=== PATIENT | female | born 1985 | race Caucasian/White ===

== ENCOUNTER 2021-02-14 18:25 | Emergency (ER) | payer OTHER ==
[~2021-02-14] VITALS: Ht 160 cm; Wt 63.0 kg
[2021-02-14 18:28] VITALS: BP 127/69
--- NOTE | 2021-02-14 19:38 | NUR ---
DR DEY AT BEDSIDE EXAMINING PT
--- NOTE | 2021-02-14 19:43 | NUR ---
36 Y/O F PATIENT PRESENTS TO ED WITH ABDOMINAL PAIN. PT STATES THE SHE HAS 5/10 LOWER ABDOMINAL PAIN. PT STATES "FEELING NAUSEOUS" DENIES V/D; SKIN IS PINK/WARM/DRY; AAOX4 WITH EVEN AND STEADY GAIT; LUNGS CLEAR BL; HR EVEN AND REGULAR; PT DENIES ANY FEVER, CP, SOB, OR COUGH AT THIS TIME; PATIENT STATES PAIN OF 0/10 AT THIS TIME; VSS; PATIENT POSITIONED FOR COMFORT; HOB ELEVATED; BEDRAILS UP X2; BED DOWN. ER MD MADE AWARE OF PT STATUS. PMH: DENIES NKA
[2021-02-14] MEDS ORDERED: ONDA-24 SL (19:47)
[2021-02-14 20:34] VITALS: BP 127/69
== END 2021-02-14 20:28 | disposition home or self-care (01) ==
LOC: MED 18:25
DX: T62.91XA Toxic effect of unspecified noxious substance eaten as food, accidental (unintentional), initial encounter (principal); K52.9 Noninfective gastroenteritis and colitis, unspecified; Y92.89 Other specified places as the place of occurrence of the external cause; Z88.6 Allergy status to analgesic agent
CPT/HCPCS: 81002; 81025; 99283

== ENCOUNTER 2021-07-03 16:43 | Emergency (ER) | payer OTHER ==
[~2021-07-03] VITALS: Ht 157.5 cm; Wt 59.0 kg
[~2021-07-03 16:43] MED LIST: ONDA-24 SL
[2021-07-03 16:48] VITALS: BP 124/85
--- NOTE | 2021-07-03 16:48 | NUR ---
PT COMPLAINS OF CONGESTION, CHEST TIGHTNESS X FRIDAY. PT STATES SHE TOOK ALBUTEROL INHALER PRIOR TO ARRIVAL, PT STATES DID NOT HELP. LUNGS CLEAR BL. RR 20, SPO2 99%. PT STATES SHE ALSO HAS FACIAL SWELLING. PMH - ASTHMA
[2021-07-03] MEDS ORDERED: ALBUTEROL 0.083% 2.5 MG/3 ML NEBU INH ONE (17:10)
[2021-07-03] MEDS ORDERED: predniSONE 20 MG TAB PO ONE (17:10)
[2021-07-03] MEDS ORDERED: ALBUTEROL SULFATE/IPRATROPIU 3 ML SOL IH ONE ×2 (17:10→18:42)
[2021-07-03] MEDS ORDERED: DIPH25TA53 PO (17:17)
[2021-07-03] MEDS ORDERED: KETO5SOL7 BOTH EYES (17:17)
--- NOTE | 2021-07-03 17:35 | NUR ---
UNABLE TO FIND PT IN TENT, WILL TRY AGAIN LATER
--- NOTE | 2021-07-03 17:56 | NUR ---
ATTEMPTED TO FIND PT TO ADMINISTER BREATHING TX PT NOT IN TENT. NURSE MADE AWARE UNABLE TO LOCATE PT.
[2021-07-03] MEDS ORDERED: predniSONE 20 MG TAB ONE (18:19)
--- NOTE | 2021-07-03 18:56 | NUR ---
PER RT FINISHED BREATHING TREATMENT
[2021-07-03 19:01] VITALS: BP 124/85
--- NOTE | 2021-07-03 19:02 | NUR ---
Patient discharged with v/s stable. Written and verbal after care instructions about allergic rhinitis given and explained. Patient alert, oriented and verbalized understanding of instructions. Ambulatory with steady gait. All questions addressed prior to discharge. ID band removed. Patient advised to follow up with PMD. Rx of benadryl, ketotifen fumarate given. Patient educated on indication of medication including possible reaction and side effects. Opportunity to ask questions provided and answered.
== END 2021-07-03 19:02 | disposition home or self-care (01) ==
LOC: MED 16:43
DX: J45.901 Unspecified asthma with (acute) exacerbation (principal)
CPT/HCPCS: 94640; 99283; J7512

== ENCOUNTER 2021-07-23 13:05 | Inpatient (IN) | payer OTHER, SELFPAY ==
[~2021-07-23] VITALS: Ht 157.5 cm; Wt 59.0 kg
[~2021-07-23 13:05] MED LIST changes: +DIPH25TA53 PO; +KETO5SOL7 BOTH EYES
[2021-07-23 13:24] VITALS: BP 101/65
[2021-07-23] MEDS ORDERED: SULF-58 PO (13:36)
--- NOTE | 2021-07-23 13:37 | NUR ---
PT TO FREDRICK PEREIRA
[2021-07-23] MEDS ORDERED: IBUPROFEN 600 MG TAB ONE (13:38)
[2021-07-23] MEDS ORDERED: IBUPROFEN 600 MG TAB PO ONE (14:15)
[2021-07-23] MEDS ORDERED: ACETAMINOPHEN EXTRA STRENGTH 500 MG TAB PO ONE (14:40)
[2021-07-23] MEDS ORDERED: NACL 0.9% 1,000 ML IV ONE ×2 (14:40→15:35)
--- NOTE | 2021-07-23 15:20 | NUR ---
36/F presents to ED with c/o right leg swelling and redness since yesterday. Patient states she "got bit by a spider" on Friday at work and believes that is the reason for the worsening swelling and redness, patient also suffers from chronic right lower leg lymphedema. Patient states she had fever since last night, patient states sharp lower leg pain. Patient denies chest pain, sob, nausea or vomiting. Denies recent injury or trauma, no bleeding or discharge noted from site.
[2021-07-23 15:21] LABS: BASOPHILS % (AUTO) 0.1 % (0.0-2.0); HEMATOCRIT 40.6 % (36-48); HEMOGLOBIN 13.6 g/dL (12.0-16.0); LYMPHOCYTES # (AUTO) 0.3 K/uL (2.5-16.5); LYMPHOCYTES % (AUTO) 2.7 % (20.5-51.1); MEAN CORPUSCULAR HEMOGLOBIN 31 pg (27-31); MEAN CORPUSCULAR HGB CONC 34 g/dL (33-37); MEAN CORPUSCULAR VOLUME 92.4 fL (80-94); MONOCYTES # (AUTO) 0.3 K/uL (0.8-1.0); MONOCYTES % (AUTO) 2.6 % (1.7-9.3); NEUTROPHILS # (AUTO) 10.8 K/uL (1.8-7.7); NEUTROPHILS % (AUTO) 94.6 % (42.2-75.2); PLATELET COUNT (AUTO) 203 K/uL (140-450); RED BLOOD CELL COUNT(AUTO) 4.39 MIL/uL (4.20-5.40); RED CELL DISTRIBUTION WIDTH 13.5 % (11.6-13.7); WHITE BLOOD COUNT (AUTO) 11.4 K/uL (4.8-10.8)
[2021-07-23] MEDS ORDERED: VANCOMYCIN 1,000 MG in DEXTROSE 5% 250 ML IV ONE (15:35)
[2021-07-23] MEDS ORDERED: VANCOMYCIN 1,000 MG VIAL ONE (15:42)
[2021-07-23 15:53] LABS: ANION GAP 10.2 (8-16); CARBON DIOXIDE 26.5 mmol/L (21-32); CREATININE 0.9 mg/dL (0.6-1.3); POTASSIUM 3.7 mmol/L (3.5-5.1); TOTAL BILIRUBIN 0.4 mg/dL (0.0-1.0)
[2021-07-23] MEDS ORDERED: ACETAMINOPHEN EXTRA STRENGTH 500 MG TAB ONE (16:16)
--- NOTE | 2021-07-23 17:00 | NUR ---
Patient appears to be resting in bed, respirations even and unlabored. On bedside centrifugal casting machine tender, VSS. All needs met at this time.
[2021-07-23 17:03] LABS: APPEARANCE,URINE HAZY (CLEAR); BILIRUBIN,URINE NEGATIVE (NEGATIVE); BLOOD, URINE 2+ (NEGATIVE); COLOR,URINE YELLOW (YELLOW); LEUKOCYTE ESTERASE ,URINE NEGATIVE (NEGATIVE); NITRITE, URINE NEGATIVE (NEGATIVE); PH,URINE 6.5 (5.0-9.0); UGLUCOSE NEGATIVE (NEGATIVE)
[2021-07-23 17:09] LABS: RBC,URINE 11-20 (MOD) /HPF (0-5); WBC,URINE 0-5 /HPF (0-5)
--- NOTE | 2021-07-23 18:55 | NUR ---
Deanna swab collected and walked to lab.
--- NOTE | 2021-07-23 18:56 | NUR ---
Patient provided with dinner tray, sitting up in bed eating, all needs met at this time.
--- NOTE | 2021-07-23 19:42 | NUR ---
Pt report given to Pema HANEY. Transfer of care at this time.
--- NOTE | 2021-07-23 19:42 | NUR ---
RECIEVED REPORT FROM LYNDON RIOJAS FOR CONTINUITY OF CARE.
--- NOTE | 2021-07-23 19:45 | NUR ---
PT SITTING COMFORTABLY IN BED, JUST FINISHED DINNER MEAL. DENIES PAIN OR DISCOMFORT AT THIS TIME. RIGHT LEG NOTED WITH REDNESS AND SWELLING. NO SIGNS OF SKIN BREAKDOWN, WOUND OR DISCHARGE. IV TO L AC REMAINS PATENT. ALL NEEDS MET AT THIS TIME. WILL CONTINUE TO MONITOR.
--- NOTE | 2021-07-23 19:52 | NUR ---
PT AMBULATED TO RESTROOM WITH EVEN AND STEADY GAIT.
--- NOTE | 2021-07-23 19:54 | NUR ---
PT AMBULATED BACK TO BED 06 WITH STEADY AND EVEN GAIT.
--- NOTE | 2021-07-23 20:10 | NUR ---
Patient will be admitted to care of MD ALFREDA. Admited to TELE. Will go to room 105B. Belongings list completed. Report to LYNDON DURHAM.
--- NOTE | 2021-07-23 20:11 | NUR ---
RECEIVED REPORT FROM ER NURSE FOR ADMISSION TO [facility] UNIT.
[2021-07-23] MEDS ORDERED: POTASSIUM CHLORIDE 10 MEQ TABER PO PRN (20:20)
[2021-07-23] MEDS ORDERED: guaiFENesin DM 200/20 MG-10 ML 10 ML UDC PO PRN (20:20)
[2021-07-23] MEDS ORDERED: HYDROcodone/APAP 7.5/325 MG 1 TAB PO PRN (20:20)
[2021-07-23] MEDS ORDERED: ZOLPIDEM 5 MG TAB PO PRN (20:20)
[2021-07-23] MEDS ORDERED: ONDANSETRON 4 MG/2 ML VIAL IM/IVP PRN (20:20)
[2021-07-23] MEDS ORDERED: DOCUSATE SODIUM 100 MG GELCAP PO PRN (20:20)
--- NOTE | 2021-07-23 20:36 | NUR ---
XRAY AT BEDSIDE.
--- NOTE | 2021-07-23 20:49 | NUR ---
PT TAKEN TO TELE RM 105B VIA [facility] WITH GALINDO HANEY AND EMIL SHAHID. LYNDON OLIVO AT BEDSIDE FOR TRANSFER OF CARE.
[2021-07-23 20:50] VITALS: BP 102/60
--- NOTE | 2021-07-23 20:50 | NUR ---
PT CAME FROM ED TO [facility] UNIT. PT STABLE CONDITION.
--- NOTE | 2021-07-23 21:00 | NUR ---
ALL SCHEDULED ABX GIVEN. PT TOLERATED WELL.
[2021-07-23 21:30] LABS: PROTHROMBIN TIME 11.7 secs (10.8-13.4)
[2021-07-23 21:36] LABS: CHOL/HDL RATIO 1.9 (1-4.5); FREE T4 (FREE THYROXINE) 0.95 ng/dL (0.76-1.46); MAGNESIUM 1.7 mg/dL (1.8-2.4); PHOSPHORUS 2.2 mg/dL (2.5-4.9); THYROID STIMULATING HORMONE 0.48 uIU/mL (0.34-3.74)
[2021-07-23 21:50] LABS: BARBITURATE, URINE NEGATIVE ng/ml (NEG <=200); BENZODIAZEPINE, URINE POSITIVE ng/mL (NEG <=200); CANNABINOID, URINE NEGATIVE ng/mL (NEG <=50); COCAINE, URINE POSITIVE ng/mL (NEG <=300); OPIATE, URINE NEGATIVE ng/mL (NEG <=2000); PHENCYCLIDINE SCREEN,URINE NEGATIVE ng/mL (NEG <=25)
[2021-07-23] MEDS ORDERED: CLINDAMYCIN 600 MG/4 ML VIAL ONE (22:23)
[2021-07-23] MEDS: LEVOFLOXACIN 750 MG/D5W PREMIX 150 ML IV SCH (22:59)
[2021-07-23] MEDS: NACL 0.9% 1,000 ML IV SCH (23:20)
[2021-07-24] MEDS: CLINDAMYCIN 600 MG in DEXTROSE 5% 50 ML IV SCH ×4 (01:45→21:34)
--- NOTE | 2021-07-24 01:46 | NUR ---
GAVE PRN DORIE
[2021-07-24] MEDS: ACETAMINOPHEN 325 MG TAB PO PRN ×2 (01:56→09:19)
--- NOTE | 2021-07-24 01:56 | NUR ---
GAVE PRN TYLENOL FOR 3 PAIN ON RLE.
--- NOTE | 2021-07-24 02:00 | NUR ---
PT RESTING ON BED NO SIGNS OF DISTRESS. ON ROOM AIR, SR ON TELE MONITOR. SAFETY MEASURES IMPLEMENTED.
[2021-07-24 04:00] VITALS: BP 115/61
[2021-07-24] MEDS ORDERED: CLINDAMYCIN 600 MG/4 ML VIAL ONE (04:37)
[2021-07-24] MEDS: NACL 0.9% 1,000 ML IV SCH ×3 (04:48→21:30)
--- NOTE | 2021-07-24 07:05 | NUR ---
RECEIVE REPORT FROM RESIST COATER DEVELOPER NURSE FOR CONTINUITY OF CARE. PATIENT SLEEPING. NO ACUTE DISTRESS NOTED. ALL SAFETY MEASURES IN PLACE. CALL LIGHT WITHIN REACH. WILL CONTINUE TO MONITOR.
--- NOTE | 2021-07-24 07:32 | NUR ---
ENDORSE PT TO [facility] for continuity of care.
[2021-07-24 07:49] LABS: BASOPHILS % (AUTO) 0.1 % (0.0-2.0); EOSINOPHILS % (AUTO) 0.5 % (0.0-4.0); HEMATOCRIT 34.8 % (36-48); HEMOGLOBIN 11.9 g/dL (12.0-16.0); LYMPHOCYTES # (AUTO) 0.5 K/uL (2.5-16.5); LYMPHOCYTES % (AUTO) 6.4 % (20.5-51.1); MEAN CORPUSCULAR HEMOGLOBIN 31 pg (27-31); MEAN CORPUSCULAR HGB CONC 34 g/dL (33-37); MEAN CORPUSCULAR VOLUME 91.7 fL (80-94); MONOCYTES # (AUTO) 0.4 K/uL (0.8-1.0); MONOCYTES % (AUTO) 5.4 % (1.7-9.3); NEUTROPHILS # (AUTO) 6.8 K/uL (1.8-7.7); NEUTROPHILS % (AUTO) 87.6 % (42.2-75.2); PLATELET COUNT (AUTO) 148 K/uL (140-450); RED CELL DISTRIBUTION WIDTH 13.9 % (11.6-13.7); WHITE BLOOD COUNT (AUTO) 7.8 K/uL (4.8-10.8)
[2021-07-24 08:00] VITALS: BP 104/53
[2021-07-24 08:07] LABS: ANION GAP 8.5 (8-16); CARBON DIOXIDE 26.4 mmol/L (21-32); CREATININE 0.7 mg/dL (0.6-1.3); POTASSIUM 3.9 mmol/L (3.5-5.1)
--- NOTE | 2021-07-24 08:51 | NUR ---
PATIENT HAS BEEN SCREENED AND CATEGORIZED LOW NUTRITION RISK. PATIENT WILL BE SEEN WITHIN 7 DAYS OF ADMISSION. 07/30/[address]
[2021-07-24] MEDS: SODIUM PHOS / POTASSIUM PHOS 1 PKT PDR PO SCH ×3 (09:10→17:44)
[2021-07-24] MEDS: PANTOPRAZOLE 40 MG TABEC PO SCH (09:11)
[2021-07-24] MEDS: MAGNESIUM OXIDE 400 MG TAB PO SCH (09:11)
--- NOTE | 2021-07-24 09:12 | NUR ---
PATIENT AWAKE AND ALERT. NO ACUTE DISTRESS NOTED. SCHEDULED MEDICATION GIVEN. PATIENT AIDED WITH STANDING TO THE BATHROOM. ALL SAFETY MEASURES IN PLACE. CALL LIGHT WITHIN REACH. WILL CONTINUE TO MONITOR.
--- NOTE | 2021-07-24 11:23 | NUR ---
PATIENT AWAKE AND ALERT NO ACUTE DISTRESS NOTED. PATIENT ON ROOM AIR. PATIENT DENIES PAIN AT THIS TIME. ALL SAFETY MEASURES IN PLACE. CALL LIGHT WITHIN REACH. WILL CONTINUE TO MONITOR.
[2021-07-24 12:00] VITALS: BP 114/56
--- NOTE | 2021-07-24 13:48 | NUR ---
PATIENT SLEEPING. NO ACUTE DISTRESS NOTED. PATIENT ON ROOM AIR. ALL SAFETY MEASURES IN PLACE. CALL LIGHT WITHIN REACH. WILL CONTINUE TO MONITOR.
--- NOTE | 2021-07-24 15:00 | NUR ---
PATIENT AWAKE AND ALERT NO ACUTE DISTRESS NOTED. PATIENT ON ROOM AIR. PATIENT DENIES PAIN AT THIS TIME. PATIENT TALKING ON PHONE. ALL SAFETY MEASURES IN PLACE. CALL LIGHT WITHIN REACH. WILL CONTINUE TO MONITOR.
[2021-07-24 16:00] VITALS: BP 95/57
--- NOTE | 2021-07-24 17:04 | NUR ---
PATIENT AWAKE AND ALERT. NO ACUTE DISTRESS NOTED. PATIENT BEING DIFFICULT STATING SHE WILL NOT COMPLY UNLESS ALL OF HER ROOM IS CLEANED INCLUDING THE BATHROOM THAT SHE SHARES WITH ANOTHER PATIENT. HOUSEKEEPING CALLED. ALL SAFETY MEASURES IN PLACE. CALL LIGHT WITHIN NORMAL RANGE. WILL CONTINUE TO MONITOR.
--- NOTE | 2021-07-24 19:05 | NUR ---
ENDORSED TO REFRIGERATION MANAGER NURSE FOR CONTINUITY OF CARE. PATIENT STABLE. ALL SAFETY. MEASURES IN PLACE.
--- NOTE | 2021-07-24 19:30 | NUR ---
RECEIVED REPORT AT BEDSIDE.PT IS AWAKE,A & O X 4.RESP UNLABORED IN RA.IV LINE HAS LEAKAGE WILL CHANGE THE SITE.TELE IS ON AND SHOWING SR.NO C/O PAIN NOW.CALL LIGHT IN REACH.WILL CONTINUE MONITORING.
[2021-07-24 20:00] VITALS: BP 110/67
[2021-07-24] MEDS: LEVOFLOXACIN 750 MG/D5W PREMIX 150 ML IV SCH (22:17)
--- NOTE | 2021-07-24 22:44 | NUR ---
CHANGED IV SITE TO RT.HAND W/#24G.
[2021-07-25] VITALS: BP 112/65
--- NOTE | 2021-07-25 01:00 | NUR ---
SLEEPING.NO DISTRESS NOTED NOW.
[2021-07-25 04:00] VITALS: BP 110/63
[2021-07-25] MEDS: CLINDAMYCIN 600 MG in DEXTROSE 5% 50 ML IV SCH ×2 (04:47→12:44)
--- NOTE | 2021-07-25 04:57 | NUR ---
VS STABLE.HR IS SR W/FREQ.PVC.NO C/O PAIN OR SOB AT THIS TIME.
--- NOTE | 2021-07-25 07:34 | NUR ---
PT CONDITION IS STABLE.NO DISTRESS NOTED AT PRESENT DAY.
[2021-07-25 07:38] LABS: BASOPHILS % (AUTO) 0.2 % (0.0-2.0); EOSINOPHILS # (AUTO) 0.1 K/uL (0-0.4); EOSINOPHILS % (AUTO) 1.7 % (0.0-4.0); HEMATOCRIT 35.3 % (36-48); LYMPHOCYTES # (AUTO) 0.7 K/uL (2.5-16.5); LYMPHOCYTES % (AUTO) 13.3 % (20.5-51.1); MEAN CORPUSCULAR HEMOGLOBIN 32 pg (27-31); MEAN CORPUSCULAR HGB CONC 34 g/dL (33-37); MEAN CORPUSCULAR VOLUME 92.9 fL (80-94); MONOCYTES # (AUTO) 0.4 K/uL (0.8-1.0); MONOCYTES % (AUTO) 7.9 % (1.7-9.3); NEUTROPHILS # (AUTO) 4.3 K/uL (1.8-7.7); NEUTROPHILS % (AUTO) 76.9 % (42.2-75.2); PLATELET COUNT (AUTO) 161 K/uL (140-450); RED CELL DISTRIBUTION WIDTH 13.8 % (11.6-13.7); WHITE BLOOD COUNT (AUTO) 5.6 K/uL (4.8-10.8)
[2021-07-25 07:48] LABS: ANION GAP 9.7 (8-16); CREATININE 0.6 mg/dL (0.6-1.3); POTASSIUM 3.7 mmol/L (3.5-5.1)
[2021-07-25 08:00] VITALS: BP 108/66
--- NOTE | 2021-07-25 08:00 | NUR ---
RECEIVED REPORT FROM DESIGN VERIFICATION ENGINEER FOR CONTINUITY OF CARE. PATIENT ALERT AWAKE ORIENTED X4, NOT IN DISTRESS NOTED. PATIENT AMBULATE TO THE BATHROOM C/O HEADACHE, WILL MEDICATE WITH TYLENOL ORDER. CALL LIGHT WITHIN REACH. WITH IVF ON GOING AND INFUSING WELL. ON HEART MONITOR SHOWS SR WITH PVC'S. NEEDS ATTENDED. WILL CONTINUE TO MONITOR.
[2021-07-25] MEDS: MAGNESIUM OXIDE 400 MG TAB PO SCH (08:33)
[2021-07-25] MEDS: PANTOPRAZOLE 40 MG TABEC PO SCH (08:34)
[2021-07-25] MEDS: ACETAMINOPHEN 325 MG TAB PO PRN (08:34)
[2021-07-25] MEDS: SODIUM PHOS / POTASSIUM PHOS 1 PKT PDR PO SCH ×2 (08:35→12:49)
--- NOTE | 2021-07-25 09:00 | NUR ---
RECEIVED REPORT, PT IS IN THE BED AT THE MOMENT, ALERT ORIENTED X 4, NO SOB NOTED AT THE MOMENT, DENIES PAIN OR DISCOMFORT. ABD IS SOFT AND FLAT, DENIES DYSURIA. PT IS ON REGULAR DIET. PT HAS EDEMA ON RIGHT LOWER EXTREMITY. CARE PLAN REVISED, WILL CONTINUE TO FOLLOW CARE PLAN.
--- NOTE | 2021-07-25 09:20 | NUR ---
REPORT GIVEN TO LYNDON JACKMAN FOR CONTINUITY OF CARE. PATIENT IN STABLE CONDITION.
--- NOTE | 2021-07-25 10:00 | NUR ---
HOURLY ROUNDS DONE PT IS RESTING IN THE BED DENIES PAIN AND DISCOMFORT. ENCOURAGED THE PT TO EAT BREAKFAST. WILL CONTINUE TO OBSERVE PT.
[2021-07-25] MEDS ORDERED: CLIN300C2 PO (11:03)
[2021-07-25] MEDS ORDERED: LEVO750T51 PO (11:03)
[2021-07-25 11:20] VITALS: BP 121/76
[2021-07-25 12:00] VITALS: BP 110/82
--- NOTE | 2021-07-25 12:50 | NUR ---
ADMINISTERED SCHEDULE MEDICATIONS PER MD ORDER.
--- NOTE | 2021-07-25 14:30 | NUR ---
PT DISCHARGE TO HOME IN STABLE CONDITION. PT WAS STABLE AT THE TIME OF DISCHARGE, DENIES PAIN AND DISCOMFORT. DISCHARGE INSTRUCTIONS GIVEN, PT REQUESTED LETTER FOR WORK, IT WAS PREPARED PER MD ORDER. ALL BELONGINGS WERE GIVEN, DC THE IV ACCESS, EDUCATED PT ABOUT THE DISEASE PROCESS. ENCOURAGED THE PT TO COME BACK IF CONDITION GET WORSE. PT VERBALIZED THE UNDERSTANDING OF INSTRUCTIONS. WALKED PT TO THE LOBBY.
[2021-07-26 06:07] LABS: T4 (THYROXINE) 4.8 ug/dL (4.5-12.0)
== END 2021-07-25 14:30 | disposition home or self-care (01) | DRG 872 ==
LOC: MED 13:05 → MTU 17:53
PROVIDERS: ADMIT Family Medicine; ATTEND Family Medicine
DX: A41.9 Sepsis, unspecified organism (principal); E87.1 Hypo-osmolality and hyponatremia; L03.115 Cellulitis of right lower limb; E44.1 Mild protein-calorie malnutrition; E78.5 Hyperlipidemia, unspecified; E83.42 Hypomagnesemia; Z20.822 Contact with and (suspected) exposure to COVID-19; E83.39 Other disorders of phosphorus metabolism; I89.0 Lymphedema, not elsewhere classified; J45.909 Unspecified asthma, uncomplicated; S80.861A Insect bite (nonvenomous), right lower leg, initial encounter; W57.XXXA Bitten or stung by nonvenomous insect and other nonvenomous arthropods, initial encounter; Y93.89 Activity, other specified; Y92.89 Other specified places as the place of occurrence of the external cause; Y99.8 Other external cause status; Z68.23 Body mass index [BMI] 23.0-23.9, adult; Z88.0 Allergy status to penicillin; Z88.6 Allergy status to analgesic agent; Z88.7 Allergy status to serum and vaccine
CPT/HCPCS: 36415; 71045; 73590; 73620; 80048; 80053; 80305; 81001; 82150; 83036; 83605; 83690; 83735; 83880; 84100; 84436; 84439; 84443; 84479; 84484; 85025; 85610; 85730; 87040; 87081; 93005; 93971; 96365; 96366; 99291; J1956; J2405; J3370; J3490; J7060